=== PATIENT | male | born 1980 | race Two or more races ===

== ENCOUNTER 2018-10-25 11:53 | Emergency (ER) | payer MEDICAID ==
[~2018-10-25] VITALS: Ht 167.6 cm; Wt 62.1 kg
--- NOTE | 2018-10-25 11:57 | NUR ---
PT BIBFAMILY FOR ETOH ABUSE, PER PT, NOT FEELING WELL; PT AAOX4, PT ON MONITOR, VSS, NAD NOTED. PENDING MD EMERSON
[2018-10-25] MEDS ORDERED: LORAZEPAM INJ 2 MG/ML VIAL ONE (12:22)
[2018-10-25 12:25] LABS: BASOPHILS # (AUTO) 0.2 /CMM (0.0-0.2); BASOPHILS % (AUTO) 2.5 % (0.0-2.0); HEMATOCRIT 43 % (39-51); HEMOGLOBIN 14.8 g/dL (13.5-17.5); LYMPHOCYTES # (AUTO) 0.6 /CMM (0.8-4.8); LYMPHOCYTES % (AUTO) 8.9 % (20.0-44.0); MEAN CORPUSCULAR HGB CONC 35 g/dl (31.0-36.0); MEAN CORPUSCULAR VOLUME 90 fL (80-96); MONOCYTES # (AUTO) 0.4 /CMM (0.1-1.30); MONOCYTES % (AUTO) 6.8 % (2.0-12.0); NEUTROPHILS # (AUTO) 5.3 /CMM (1.8-8.9); NEUTROPHILS % (AUTO) 80.8 % (43.0-81.0); PLATELET COUNT (AUTO) 79 /CMM (150-450); RED BLOOD CELL COUNT(AUTO) 4.79 MIL/uL (4.5-6.0); WHITE BLOOD COUNT (AUTO) 6.6 K/uL (4.3-11.0)
[2018-10-25 12:30] LABS: CALCIUM, SERUM 9.2 mg/dL (8.5-10.1); CREATININE 0.7 mg/dL (0.6-1.3); POTASSIUM 4.2 mmol/L (3.5-5.1)
[2018-10-25] MEDS ORDERED: IV NS 0.9% 1,000 ML BAG IV ONE (12:30)
[2018-10-25] MEDS ORDERED: LORAZEPAM INJ 2 MG/ML VIAL IV ONE (12:30)
[2018-10-25 13:05] LABS: LYMPHOCYTES % (MANUAL) 14 % (16-48); MONOCYTES % (MANUAL) 6 % (0-11.0); NEUTROPHILS % (MANUAL) 80 (42-76)
--- NOTE | 2018-10-25 13:29 | NUR ---
Patient discharged to home in stable condition. Written and verbal after care instructions given. Patient verbalizes understanding of instruction. IV removed. Catheter intact and site benign. Pressure and 4x4 applied to site. No bleeding noted.
[2018-10-25 13:30] VITALS: BP 121/69
== END 2018-10-25 13:33 | disposition home or self-care (01) ==
LOC: ER 11:55
DX: F10.239 Alcohol dependence with withdrawal, unspecified (principal); R42 Dizziness and giddiness; Y90.9 Presence of alcohol in blood, level not specified
CPT/HCPCS: 36415; 70450; 80048; 83690; 85025; 96374; 99284; J2060; J7030

== ENCOUNTER 2019-02-02 16:08 | Emergency (ER) | payer SELFPAY ==
[~2019-02-02] VITALS: Ht 162.6 cm; Wt 61.7 kg
--- NOTE | 2019-02-02 16:33 | NUR ---
C/O HEADACHE AND DIZZINESS S/P BINGE DRINKING FOR 3-4 DAYS. ROMANIAN-SPEAKING, FAMILY CAN TRANSLATE AT BEDSIDE. AOX4, AMBULATORY, VSS, RR EVEN AND UNLABORED ON RA. NO OTHER COMPLAINTS AT THIS TIME. READY FOR EVAL.
[2019-02-02] MEDS ORDERED: LORAZEPAM 0.5 MG TABLET ONE (16:57)
[2019-02-02] MEDS ORDERED: IV NS 0.9% 1,000 ML BAG IV ONE (17:00)
[2019-02-02] MEDS ORDERED: LORAZEPAM 1 MG TABLET PO ONE (17:00)
[2019-02-02 17:08] LABS: BASOPHILS # (AUTO) 0.1 /CMM (0.0-0.2); BASOPHILS % (AUTO) 0.6 % (0.0-2.0); EOSINOPHILS % (AUTO) 0.9 % (0.0-6.0); HEMATOCRIT 48 % (39-51); HEMOGLOBIN 16.4 g/dL (13.5-17.5); LYMPHOCYTES # (AUTO) 1.1 /CMM (0.8-4.8); LYMPHOCYTES % (AUTO) 11.7 % (20.0-44.0); MEAN CORPUSCULAR HGB CONC 34 g/dl (31.0-36.0); MEAN CORPUSCULAR VOLUME 90 fL (80-96); MONOCYTES # (AUTO) 0.6 /CMM (0.1-1.30); MONOCYTES % (AUTO) 6.5 % (2.0-12.0); NEUTROPHILS # (AUTO) 7.3 /CMM (1.8-8.9); NEUTROPHILS % (AUTO) 80.3 % (43.0-81.0); PLATELET COUNT (AUTO) 132 /CMM (150-450); RED BLOOD CELL COUNT(AUTO) 5.38 MIL/uL (4.5-6.0); WHITE BLOOD COUNT (AUTO) 9.1 K/uL (4.3-11.0)
[2019-02-02 17:14] LABS: CALCIUM, SERUM 8.5 mg/dL (8.5-10.1); CREATININE 0.8 mg/dL (0.6-1.3); POTASSIUM 4.3 mmol/L (3.5-5.1)
[2019-02-02 17:20] LABS: ALBUMIN 4.4 g/dL (3.4-5.0); BILIRUBIN,DIRECT 0.2 mg/dL (0.0-0.2); TOTAL PROTEIN, SERUM 7.4 g/dL (6.4-8.2)
--- NOTE | 2019-02-02 18:30 | NUR ---
Patient discharged to home in stable condition. Written and verbal after care instructions given. Patient verbalizes understanding of instruction.IV removed. Catheter intact and site benign. Pressure and 4x4 applied to site. No bleeding noted.
[2019-02-02 18:41] VITALS: BP 124/82
== END 2019-02-02 18:30 | disposition home or self-care (01) ==
LOC: ER 16:10
DX: F10.239 Alcohol dependence with withdrawal, unspecified (principal); R42 Dizziness and giddiness; Y90.9 Presence of alcohol in blood, level not specified
CPT/HCPCS: 36415; 80048; 80076; 83690; 85025; 96360; 99283; J7030

== ENCOUNTER 2022-06-17 17:16 | Emergency (ER) | payer BC ==
[~2022-06-17] VITALS: Ht 170.2 cm; Wt 65.8 kg
--- NOTE | 2022-06-17 17:46 | NUR ---
established iv line 20g , LAC
[2022-06-17] MEDS ORDERED: CLOP75TA15 PO (18:18)
[2022-06-17] MEDS ORDERED: ASPI-1420 PO (18:18)
[2022-06-17 18:19] LABS: BASOPHILS % (AUTO) 0.3 % (0.0-2.0); HEMATOCRIT 48 % (39-51); LYMPHOCYTES # (AUTO) 2.3 K/uL (0.8-4.8); LYMPHOCYTES % (AUTO) 25.8 % (20.0-44.0); MEAN CORPUSCULAR HGB CONC 34 g/dl (31.0-36.0); MEAN CORPUSCULAR VOLUME 88 fL (80-96); MONOCYTES # (AUTO) 0.8 K/uL (0.1-1.30); MONOCYTES % (AUTO) 9.2 % (2.0-12.0); NEUTROPHILS # (AUTO) 5.7 K/uL (1.8-8.9); NEUTROPHILS % (AUTO) 62.7 % (43.0-81.0); PLATELET COUNT (AUTO) 132 K/uL (150-450); RED BLOOD CELL COUNT(AUTO) 5.41 MIL/uL (4.5-6.0); WHITE BLOOD COUNT (AUTO) 9.1 K/uL (4.3-11.0)
--- NOTE | 2022-06-17 18:22 | NUR ---
COVID SWAB COLLECTED AND SENT TO LAB.
[2022-06-17 18:23] LABS: CALCIUM, SERUM 8.2 mg/dL (8.5-10.1); CARBON DIOXIDE 27 mmol/L (21-32); CHLORIDE 100 mmol/L (98-107); CREATININE 0.7 mg/dL (0.6-1.3); GLUCOSE 111 mg/dL (74-106); POTASSIUM 3.8 mmol/L (3.5-5.1); SODIUM SERUM 140 mmol/L (136-145); UREA NITROGEN, BLOOD 7 mg/dL (7-18)
--- NOTE | 2022-06-17 18:23 | NUR ---
URINE COLLECTED AND SENT TO LAB.
--- NOTE | 2022-06-17 18:26 | NUR ---
MOVE SHEET SUBMITTED.
[2022-06-17] MEDS ORDERED: ASPIRIN 325 MG TABLET PO ONE (18:30)
[2022-06-17] MEDS ORDERED: ASPIRIN EC 325 MG TABLET.DR PO ONE (18:33)
[2022-06-17 18:39] LABS: ALANINE AMINOTRANSFERASE 130 U/L (12-78); ALBUMIN 4.3 g/dL (3.4-5.0); ALKALINE PHOSPHATASE 43 U/L (46-116); ASPARTATE AMINOTRANSFERASE 111 U/L (15-37); BILIRUBIN,DIRECT 0.1 mg/dL (0.0-0.2); BILIRUBIN,TOTAL 0.5 mg/dL (0.2-1.0); TOTAL PROTEIN, SERUM 7.7 g/dL (6.4-8.2)
[2022-06-17] MEDS ORDERED: LORAZEPAM 0.5 MG TABLET ONE (18:43)
[2022-06-17] MEDS ORDERED: LORAZEPAM 1 MG TABLET PO ONE (19:00)
--- NOTE | 2022-06-17 19:43 | NUR ---
PT AMBULATED TO BATHROOM, STEADY GAIT NOTED
--- NOTE | 2022-06-17 19:44 | NUR ---
DR WHALEN AT THE BED SIDE SPEAKING TO THE PATIENT WHO STATED HE WANTS TO LEAVE THE HOSPITAL AMA
--- NOTE | 2022-06-17 19:59 | NUR ---
Patient does not wish to proceed with medical care recommended by Dr. Saldaña. Patient given information related to possible complications, up to and including , which could occur as a result of leaving the hospital at this time. Patient verbalizes understanding of risks involved due to leaving against medical advice. Patient has signed AMA form.
[2022-06-17 20:00] VITALS: BP 121/66
== END 2022-06-17 20:01 | disposition left against medical advice (07) ==
LOC: ER 17:20
DX: R07.9 Chest pain, unspecified (principal); Z20.822 Contact with and (suspected) exposure to COVID-19; Z53.29 Procedure and treatment not carried out because of patient's decision for other reasons; Z79.02 Long term (current) use of antithrombotics/antiplatelets; Z79.82 Long term (current) use of aspirin; I25.10 Atherosclerotic heart disease of native coronary artery without angina pectoris; Z95.5 Presence of coronary angioplasty implant and graft
CPT/HCPCS: 99285; 71045; 87426; 93005; 85025; 80048; 82550; 80076; 36415; 84484; 87081; 83880; 82553; C9803